=== PATIENT | female | born 1955 | race Caucasian/White ===

== ENCOUNTER 2024-07-02 20:11 | Emergency (ER) | payer OTHER, SELFPAY ==
[2024-07-02 20:17] VITALS: BP 136/82
--- NOTE | 2024-07-02 23:09 | ED.GENMED ---
History of Present Illness
General
Chief Complaint: Head Injury
Source: patient
Exam Limitations: none
Time Seen by Provider: 07/02/24 22:20
Nursing documentation reviewed up to this point in time: agreed with
History of Present Illness
History of Present Illness:
Patient states she slipped on attic steps and fell Hit left posterior head on floor. No LOC. Has large hematoma at site. Injury occurred just [employer]
Past History
Past History
ED Past Medical History: Cancer
ED Past Surgical History: Gynecological (Uterine polyp excision, Lumpectomy), Orthopedic (Bilateral carpal tunnel surgery), Tonsilectomy and Other (The umbilical hernia repair mastectomy)
Social History
Tobacco: Non-smoker
Alcohol: None
Personal:
Living: with family
Employment: Employed
Family History
Family History: Other (Noncontributory)
Phy Exam
General Physical Exam
General Presentation: well appearing and no apparent distress
General age: appears stated age
General Skin: warm and dry
General Habitus: normal
Eye Exam
Eye Exam: PERRL, EOMI, conjunctiva normal and globe normal
Neurological Exam
Neurological Exam: alert, oriented x3, CN II-XII intact, no motor deficits, no sensory deficits, speech normal and normal gait
Musculoskeletal Exam
Musculoskeletal Exam: full ROM, neuro vasc intact and other (Full nonpainful ROM to head/neck)
Skin Exam
Skin Exam: normal color, warm/dry, no rash and other (Large hematoma to left occipital scalp)
Psychiatric Exam
Psychiatric Exam: normal mood/affect
Course
Orders/Labs/Results
Orders:
Orders
07/02/24 20:19
CT Head W/o Iv Contrast Urgent
Comment:
Reason For Exam: fall down steps, head impact
Vital Signs
Initial and Last Documented VS:
Initial Vital Signs
Temp Pulse Resp BP Pulse Ox
98.6 F 73 17 136/82 98
07/02/24 20:17 07/02/24 20:17 07/02/24 20:17 07/02/24 20:17 07/02/24 20:17
Last Documented Vital Signs
Temp Pulse Resp BP Pulse Ox
98.6 F 73 17 136/82 98
07/02/24 20:17 07/02/24 20:17 07/02/24 20:17 07/02/24 20:17 07/02/24 20:17
*Radiology
Radiology exam reviewed: radiology read reviewed
*Pulse Oximetry
Patient hypoxic: no
*Critical Care Note
Total Time (30-74mins, 75-104mins- exclusive of procedures): Not Applicable
ED Attending Note
-
Portions of this chart may have been created with voice recognition software.� Occasional wrong word or��sound alike� substitutions may have occurred due to the inherent limitations of voice recognition software.
Discharge Plan
Departure
Patient Disposition: Home (Routine Discharge)
Date of Disposition: 07/02/24
Time of Disposition: 22:31
Patient with high blood pressure during this ER visit?: No
Condition: Good
Covid-19: Not Applicable
Discharge Problem:
Head injury
Instructions: Head Injury in Adults (DC), Contusion (DC)
Prescriptions:
No Action
aspirin 325 mg tablet
325 mg PO DAILY Qty: 30 0RF
acetaminophen 500 mg Tablet
1,000 mg PO Q6H PRN (Reason: pain)
citalopram [Celexa] 20 mg Tablet
20 mg PO DAILY
ibuprofen 200 mg Tablet
600 mg PO Q6H PRN (Reason: pain)
Activity Restrictions/Additional Instructions:
Follow up with your family doctor.
Interventions
Interventions:
*Risk Screen - Suicide Last Done: 07/02/24 20:19
*General Assessment Last Done: 07/02/24 20:19
*Neglect/Abuse Screening Last Done: 07/02/24 20:19
*ED- Fall Risk Assessment Last Done: 07/02/24 22:35
*ED COVID-19 Vaccine History Last Done: 07/02/24 20:19
*Nursing Disposition Last Done: 07/02/24 22:47
ED- Neurological Assessment Last Done: 07/02/24 22:35
ED-Skin Assessment Last Done: 07/02/24 22:35
Discharge Date and Time
Discharge Date/Time: 07/02/24 22:48
Print Language: ARGENTINE
== END 2024-07-02 22:48 | disposition home or self-care (01) ==
LOC: EMR 20:11
PROVIDERS: EMERGENCY PHYSICIAN Emergency Medicine; FAMILY PHYSICIAN Family Medicine
DX: S00.03XA Contusion of scalp, initial encounter (principal); W10.8XXA Fall (on) (from) other stairs and steps, initial encounter
CPT/HCPCS: 99284; 70450

== ENCOUNTER → 2024-08-02 11:58 | Outpatient (REF) | payer OTHER, SELFPAY | LOC: RAD 11:58 | PROVIDERS: ATTENDING PHYSICIAN Physician Assistant | DX: R10.9 Unspecified abdominal pain (principal) | CPT/HCPCS: 74176 ==